=== PATIENT | female | born 1965 | race Caucasian/White ===

== ENCOUNTER 2020-11-16 21:21 | Inpatient (IN) | payer SELFPAY ==
[2020-11-17] MEDS ORDERED: Morphine 4 MG/ML VIAL ONE (00:05)
[2020-11-17] MEDS ORDERED: Ondansetron PF 4 MG/2 ML Vial IVP PRN (00:11)
[2020-11-17] MEDS ORDERED: Acetaminophen 325 MG TAB PO PRN (00:11)
[2020-11-17] MEDS ORDERED: Ketorolac Tromethamine 30 MG/ML VIAL ONE ×2 (00:12→08:14)
[2020-11-17 01:13] LABS: SARS-CoV-2 NAA Rapid Test Not Detected (NotDetected)
[2020-11-17] MEDS ORDERED: Acetaminophen 325 MG TAB ONE (06:10)
[2020-11-17 06:18] LABS: #Lymphocytes 1.4 thou/uL (1.20-3.40); #Monocytes 0.3 thou/uL (0.11-0.59); #Neutrophils 13.8 thou/uL (1.40-6.50); %Basophils 0.1 % (0.0-1.0); %Eosinophils 0.2 % (0.0-10.0); %Lymphocytes 8.9 % (21.0-51.0); %Monocytes 1.9 % (0.0-10.0); %Neutrophils 88.9 % (42.0-75.0); Hemoglobin 10.8 g/dL (12.0-16.0); Mean Corpuscular HGB CONC 32.9 g/dL (32.0-36.0); Mean Corpuscular Hemoglobin 33.9 pg (27.0-31.0); Mean Platelet Volume 7.7 fL (7.4-10.4); Platelet Count 231 thou/uL (130-400); RBC Distribution Width 11.9 % (11.5-14.5); Red Blood Cell (RBC) Count 3.18 mill/uL (4.20-5.40); White Blood Cell (WBC) Count 15.5 thou/uL (4.8-10.8)
[2020-11-17 06:35] LABS: ALT (SGPT) 9 U/L (8-55); AST (SGOT) 15 U/L (5-34); Albumin 3.7 g/dL (3.5-5.0); Alkaline Phosphatase 113 U/L (40-110); Anion Gap 12 mmol/L (10-20); BUN (Urea Nitrogen) 12 mg/dL (9.8-20.1); Bilirubin, Total 0.8 mg/dL (0.2-1.2); Calc. Creatinine Clearance 0 mL/min (70-130); Calcium 8.4 mg/dL (7.8-10.44); Carbon Dioxide 20 mmol/L (22-29); Chloride 108 mmol/L (98-107); Globulin 2.5 g/dL (2.4-3.5); Glucose 111 mg/dL (70-105); Potassium 3.3 mmol/L (3.5-5.1); Protein, Total 6.2 g/dL (6.0-8.3); Sodium 137 mmol/L (136-145)
[2020-11-17] MEDS ORDERED: Potassium Chloride 20 MEQ TAB PO SCH (07:00)
[2020-11-17] MEDS ORDERED: Sodium Chloride 0.9% 1,000 ML IV SCH (07:00)
[2020-11-17] MEDS ORDERED: Famotidine 20 MG TAB ONE (08:14)
[2020-11-17] MEDS ORDERED: Potassium Chloride 20 MEQ TAB ONE (08:14)
[2020-11-17] MEDS ORDERED: Piperacillin/Tazobactam 3.375 GM VIAL ONE ×2 (08:14→15:05)
[2020-11-17] MEDS: Piperacillin/Tazobactam 3.375 GM in Sodium Chloride 0.9% 100 ML IVPB SCH ×3 (08:35→23:08)
[2020-11-17] MEDS: Famotidine 20 MG TAB PO SCH ×2 (08:35→20:55)
[2020-11-17] MEDS: Ketorolac Tromethamine 30 MG/ML VIAL IVP PRN ×2 (08:37→20:54)
[2020-11-17] MEDS: Sodium Chloride 0.9% 1,000 ML IV SCH ×2 (08:38→20:55)
[2020-11-17 16:59] VITALS: BMI 21.1
[2020-11-17] MEDS: Melatonin 3 MG TAB PO PRN (20:55)
[2020-11-18 05:42] LABS: #Eosinphils 0.1 thou/uL (0.0-0.7); #Lymphocytes 1.2 thou/uL (1.20-3.40); #Monocytes 0.4 thou/uL (0.11-0.59); #Neutrophils 11.7 thou/uL (1.40-6.50); %Basophils 0.2 % (0.0-1.0); %Eosinophils 0.4 % (0.0-10.0); %Lymphocytes 8.7 % (21.0-51.0); %Monocytes 2.8 % (0.0-10.0); %Neutrophils 87.9 % (42.0-75.0); Hemoglobin 9.5 g/dL (12.0-16.0); Mean Corpuscular HGB CONC 32.5 g/dL (32.0-36.0); Mean Platelet Volume 8.2 fL (7.4-10.4); Platelet Count 195 thou/uL (130-400); RBC Distribution Width 11.9 % (11.5-14.5); White Blood Cell (WBC) Count 13.3 thou/uL (4.8-10.8)
[2020-11-18] MEDS: Ketorolac Tromethamine 30 MG/ML VIAL IVP PRN ×2 (05:45→17:22)
[2020-11-18] MEDS: Sodium Chloride 0.9% 1,000 ML IV SCH ×2 (05:48→08:35)
[2020-11-18 05:59] LABS: ALT (SGPT) 12 U/L (8-55); AST (SGOT) 14 U/L (5-34); Albumin 3.1 g/dL (3.5-5.0); Alkaline Phosphatase 101 U/L (40-110); Anion Gap 15 mmol/L (10-20); BUN (Urea Nitrogen) 11 mg/dL (9.8-20.1); Bilirubin, Total 0.6 mg/dL (0.2-1.2); Calc. Creatinine Clearance 81 mL/min (70-130); Calcium 8.7 mg/dL (7.8-10.44); Carbon Dioxide 11 mmol/L (22-29); Chloride 115 mmol/L (98-107); Globulin 2.5 g/dL (2.4-3.5); Glucose 66 mg/dL (70-105); Iron Less than 8 ug/dL (50-170); Iron Binding Capacity, Total 170 mcg/dL (265-497); Potassium 3.7 mmol/L (3.5-5.1); Protein, Total 5.6 g/dL (6.0-8.3); Sodium 137 mmol/L (136-145)
[2020-11-18 06:10] LABS: Ferritin 294.25 ng/mL (10-291)
[2020-11-18 06:17] LABS: Vitamin B12 686 pg/mL (211-911)
[2020-11-18 06:24] LABS: HBCM Index 0.09 S/CO (0-0.79); HBSAg Index 0.25 S/CO (0-0.99); Hep A IgM AB Non-Reactive (NonReactive); Hep A IgM S/CO 0.22 S/CO (0-0.79); Hep B Surf Ag Non-Reactive S/CO (NonReactive); Hep C IgG Ab Non-Reactive (NonReactive); Hepatitis B Core IgM Abs Non-Reactive (NonReactive)
[2020-11-18] MEDS: Famotidine 20 MG TAB PO SCH ×2 (08:32→20:17)
[2020-11-18] MEDS: Piperacillin/Tazobactam 3.375 GM in Sodium Chloride 0.9% 100 ML IVPB SCH ×2 (08:32→14:00)
[2020-11-18 15:23] LABS: Lactic Acid 0.6 mmol/L (0.5-2.2)
[2020-11-18 15:24] LABS: Anion Gap 17 mmol/L (10-20); BUN (Urea Nitrogen) 12 mg/dL (9.8-20.1); Calc. Creatinine Clearance 79 mL/min (70-130); Calcium 8.9 mg/dL (7.8-10.44); Carbon Dioxide 11 mmol/L (22-29); Chloride 114 mmol/L (98-107); Glucose 84 mg/dL (70-105); Potassium 3.8 mmol/L (3.5-5.1); Sodium 138 mmol/L (136-145)
[2020-11-18] MEDS ORDERED: Nicotine 14 MG PATCH TD SCH (17:00)
[2020-11-18] MEDS: Sodium Bicarbonate 150 MEQ in Dextrose 5% in Water 1,000 ML IV SCH (17:15)
[2020-11-18] MEDS: Potassium Chloride 20 MEQ TAB PO SCH (17:22)
[2020-11-18] MEDS: Melatonin 3 MG TAB PO PRN (20:17)
[2020-11-19] MEDS: Ketorolac Tromethamine 30 MG/ML VIAL IVP PRN (00:13)
[2020-11-19] MEDS: Piperacillin/Tazobactam 3.375 GM in Sodium Chloride 0.9% 100 ML IVPB SCH ×2 (00:15→09:33)
[2020-11-19 04:15] LABS: #Eosinphils 0.1 thou/uL (0.0-0.7); #Monocytes 0.3 thou/uL (0.11-0.59); #Neutrophils 5.2 thou/uL (1.40-6.50); %Basophils 0.2 % (0.0-1.0); %Eosinophils 1.1 % (0.0-10.0); %Lymphocytes 15.8 % (21.0-51.0); %Monocytes 4.6 % (0.0-10.0); %Neutrophils 78.2 % (42.0-75.0); Mean Corpuscular HGB CONC 33.7 g/dL (32.0-36.0); Mean Corpuscular Hemoglobin 34.5 pg (27.0-31.0); Mean Platelet Volume 7.6 fL (7.4-10.4); Platelet Count 197 thou/uL (130-400); RBC Distribution Width 11.9 % (11.5-14.5); Red Blood Cell (RBC) Count 2.61 mill/uL (4.20-5.40); White Blood Cell (WBC) Count 6.6 thou/uL (4.8-10.8)
[2020-11-19 04:28] LABS: ALT (SGPT) 12 U/L (8-55); AST (SGOT) 13 U/L (5-34); Albumin 2.9 g/dL (3.5-5.0); Alkaline Phosphatase 88 U/L (40-110); Anion Gap 13 mmol/L (10-20); BUN (Urea Nitrogen) 9 mg/dL (9.8-20.1); Bilirubin, Total 0.7 mg/dL (0.2-1.2); Calc. Creatinine Clearance 88 mL/min (70-130); Calcium 8.3 mg/dL (7.8-10.44); Carbon Dioxide 16 mmol/L (22-29); Chloride 111 mmol/L (98-107); Globulin 2.2 g/dL (2.4-3.5); Glucose 125 mg/dL (70-105); Magnesium 1.2 mg/dL (1.6-2.6); Potassium 3.2 mmol/L (3.5-5.1); Protein, Total 5.1 g/dL (6.0-8.3); Sodium 137 mmol/L (136-145)
[2020-11-19] MEDS: Sodium Bicarbonate 150 MEQ in Dextrose 5% in Water 1,000 ML IV SCH (05:18)
[2020-11-19] MEDS ORDERED: Saccharomyces boulardii 250 MG CAP PO SCH (09:00)
[2020-11-19] MEDS ORDERED: Lisinopril 5 MG TAB PO SCH (09:00)
[2020-11-19] MEDS ORDERED: Potassium Chloride 20 MEQ TAB PO SCH (09:00)
[2020-11-19] MEDS: Potassium Chloride 20 MEQ TAB PO SCH (09:16)
[2020-11-19] MEDS: Famotidine 20 MG TAB PO SCH (09:16)
[2020-11-19 13:08] VITALS: BP 125/70; TEMP 96.1
[2020-11-20] MEDS ORDERED: Lisinopril 2.5 MG TAB PO SCH (09:00)
[2020-11-21 19:09] LABS: EliA Celiac New Method **** NEW METHOD ****; t-Transglutaminase (tTG) IgA 0.7 EliAU/mL (<7 Negative)
== END 2020-11-19 15:35 | disposition home or self-care (01) | DRG 872 ==
LOC: ERS 21:21 → ERHOLD 23:07 → 2NO 11-17 16:05
PROVIDERS: ADMIT Internal Medicine; ATTEND Internal Medicine
DX: A41.89 Other specified sepsis (principal); E87.2 Acidosis; A08.4 Viral intestinal infection, unspecified; Z20.822 Contact with and (suspected) exposure to COVID-19; F10.10 Alcohol abuse, uncomplicated; F17.210 Nicotine dependence, cigarettes, uncomplicated; I10 Essential (primary) hypertension; D64.9 Anemia, unspecified; Z88.5 Allergy status to narcotic agent; Z79.899 Other long term (current) drug therapy
CPT/HCPCS: 0240U; 36415; 76705; 76775; 80053; 80074; 82607; 82728; 82746; 83516; 83540; 83550; 83605; 83630; 83735; 85025; 87045; 87046; 87324; 87328; 87329; 87427; 87449; 96374; J1885; J2270; J2543; J3490; J7070

== ENCOUNTER 2022-03-27 11:33 | Inpatient (IN) | payer OTHER, SELFPAY ==
[2022-03-27 12:46] LABS: #Basophils 0.1 thou/uL (0.0-0.2); #Lymphocytes 1.7 thou/uL (1.20-3.40); #Monocytes 0.5 thou/uL (0.11-0.59); #Neutrophils 6.8 thou/uL (1.40-6.50); %Basophils 0.8 % (0.0-1.0); %Eosinophils 0.1 % (0.0-10.0); %Lymphocytes 18.6 % (21.0-51.0); %Monocytes 5.4 % (0.0-10.0); %Neutrophils 75.2 % (42.0-75.0); Mean Corpuscular HGB CONC 33.5 g/dL (32.0-36.0); Mean Corpuscular Hemoglobin 38.9 pg (27.0-31.0); Mean Platelet Volume 8.5 fL (7.4-10.4); Platelet Count 243 thou/uL (130-400); RBC Distribution Width 13.8 % (11.5-14.5); Red Blood Cell (RBC) Count 2.84 mill/uL (4.20-5.40)
[2022-03-27] MEDS ORDERED: Acetaminophen 325 MG TAB ONE (12:46)
[2022-03-27] MEDS ORDERED: Boostrix 0.5 ML (Tdap) VIAL ONE (12:46)
[2022-03-27 13:06] LABS: Acetaminophen Less than 10.0 mcg/mL (10.0-30.0); Alcohol Less than 10 mg/dL (Less than 10); CK (CPK) 1013 U/L (29-168); Salicylate Less than 8.0 mg/dL (15.0-30.0)
[2022-03-27 13:07] LABS: ALT (SGPT) 79 U/L (8-55); AST (SGOT) 168 U/L (5-34); Albumin 2.2 g/dL (3.5-5.0); Alkaline Phosphatase 211 U/L (40-110); Anion Gap 19 mmol/L (10-20); BUN (Urea Nitrogen) 31 mg/dL (9.8-20.1); Calc. Creatinine Clearance 0 mL/min (70-130); Carbon Dioxide 21 mmol/L (22-29); Chloride 99 mmol/L (98-107); Estimated GFR 19; Globulin 3.2 g/dL (2.4-3.5); Glucose 80 mg/dL (70-105); Potassium 3.1 mmol/L (3.5-5.1); Protein, Total 5.4 g/dL (6.0-8.3); Sodium 136 mmol/L (136-145)
[2022-03-27 13:10] LABS: MDiff Complete? YES; Macrocytosis MODERATE=16-30 cells (100X) (0-5/hpf); Platelet Morphology Comment Appears Adequate; Polychromasia SLIGHT = 2-3 cells (100X) (0-2/hpf); Target Cells SLIGHT = 2-5 cells (100X) (0-1/hpf)
[2022-03-27 14:22] LABS: SARS-CoV-2 NAA Rapid Test Not Detected (NotDetected)
[2022-03-27] MEDS ORDERED: Ondansetron PF 4 MG/2 ML Vial IVP PRN (14:38)
[2022-03-27] MEDS ORDERED: Potassium Chloride 20 MEQ TAB PO SCH (14:45)
[2022-03-27] MEDS: Sodium Chloride 0.9% 1,000 ML IV SCH ×2 (17:15→22:45)
[2022-03-27] MEDS ORDERED: Acetaminophen 325 MG TAB PO PRN (20:04)
[2022-03-27] MEDS: traMADol HCl 50 MG TAB PO PRN (20:46)
[2022-03-28 05:43] LABS: #Lymphocytes 1.4 thou/uL (1.20-3.40); #Monocytes 0.4 thou/uL (0.11-0.59); %Basophils 0.1 % (0.0-1.0); %Eosinophils 0.1 % (0.0-10.0); %Lymphocytes 18.1 % (21.0-51.0); %Monocytes 5.2 % (0.0-10.0); %Neutrophils 76.5 % (42.0-75.0); Mean Corpuscular HGB CONC 32.4 g/dL (32.0-36.0); Mean Corpuscular Hemoglobin 38.6 pg (27.0-31.0); Mean Platelet Volume 8.2 fL (7.4-10.4); Platelet Count 187 thou/uL (130-400); RBC Distribution Width 13.8 % (11.5-14.5); Red Blood Cell (RBC) Count 2.08 mill/uL (4.20-5.40); White Blood Cell (WBC) Count 7.9 thou/uL (4.8-10.8)
[2022-03-28] MEDS: Acetaminophen 325 MG TAB PO PRN (05:44)
[2022-03-28] MEDS: Sodium Chloride 0.9% 1,000 ML IV SCH ×4 (05:45→23:27)
[2022-03-28 06:34] LABS: Anion Gap 14 mmol/L (10-20); BUN (Urea Nitrogen) 27 mg/dL (9.8-20.1); CK (CPK) 420 U/L (29-168); Calc. Creatinine Clearance 19 mL/min (70-130); Calcium 6.5 mg/dL (7.8-10.44); Carbon Dioxide 15 mmol/L (22-29); Chloride 109 mmol/L (98-107); Estimated GFR 29; Glucose 95 mg/dL (70-105); Potassium 2.3 mmol/L (3.5-5.1); Sodium 136 mmol/L (136-145)
[2022-03-28] MEDS ORDERED: Electrolyte Replacement Protocol 1 EACH FS PRN (06:40)
[2022-03-28] MEDS: Potassium Chloride 20 MEQ in Premix Bag 1 BAG IVPB SCH ×4 (08:04→14:29)
[2022-03-28] MEDS: Aspirin 81 mg Enteric Coated Tablet PO SCH (08:04)
[2022-03-28] MEDS: Enoxaparin Sodium 40 MG/0.4 ML SYRINGE SC SCH (08:04)
[2022-03-28] MEDS ORDERED: Potassium Chloride 40 MEQ in Premix Bag 1 BAG IVPB SCH (08:30)
[2022-03-28] MEDS ORDERED: Potassium Chloride 20 MEQ in Premix Bag 1 BAG IVPB SCH (08:45)
[2022-03-28] MEDS ORDERED: Lisinopril 2.5 MG TAB PO SCH (09:00)
[2022-03-28] MEDS ORDERED: Potassium Chloride 20 MEQ TAB PO SCH (10:15)
[2022-03-28] MEDS: traMADol HCl 50 MG TAB PO PRN ×2 (10:16→22:38)
[2022-03-28 15:21] LABS: Anion Gap 16 mmol/L (10-20); BUN (Urea Nitrogen) 24 mg/dL (9.8-20.1); Calc. Creatinine Clearance 23 mL/min (70-130); Calcium 6.5 mg/dL (7.8-10.44); Carbon Dioxide 14 mmol/L (22-29); Chloride 111 mmol/L (98-107); Estimated GFR 36; Glucose 96 mg/dL (70-105); Potassium 3.8 mmol/L (3.5-5.1); Sodium 137 mmol/L (136-145)
[2022-03-28 18:12] LABS: Potassium 4.3 mmol/L (3.5-5.1)
[2022-03-29] MEDS: Acetaminophen 325 MG TAB PO PRN (02:31)
[2022-03-29 05:35] LABS: #Lymphocytes 1.7 thou/uL (1.20-3.40); #Monocytes 0.4 thou/uL (0.11-0.59); #Neutrophils 5.1 thou/uL (1.40-6.50); %Basophils 0.2 % (0.0-1.0); %Eosinophils 0.2 % (0.0-10.0); %Lymphocytes 23.8 % (21.0-51.0); %Monocytes 5.1 % (0.0-10.0); %Neutrophils 70.7 % (42.0-75.0); Hemoglobin 9.1 g/dL (12.0-16.0); Mean Corpuscular HGB CONC 31.4 g/dL (32.0-36.0); Mean Corpuscular Hemoglobin 37.8 pg (27.0-31.0); Mean Platelet Volume 8.3 fL (7.4-10.4); Platelet Count 215 thou/uL (130-400); RBC Distribution Width 13.5 % (11.5-14.5); Red Blood Cell (RBC) Count 2.39 mill/uL (4.20-5.40); White Blood Cell (WBC) Count 7.2 thou/uL (4.8-10.8)
[2022-03-29 05:45] LABS: ALT (SGPT) 57 U/L (8-55); AST (SGOT) 76 U/L (5-34); Albumin 1.9 g/dL (3.5-5.0); Alkaline Phosphatase 176 U/L (40-110); Anion Gap 9 mmol/L (10-20); BUN (Urea Nitrogen) 19 mg/dL (9.8-20.1); Bilirubin, Total 0.7 mg/dL (0.2-1.2); CK (CPK) 254 U/L (29-168); Calc. Creatinine Clearance 31 mL/min (70-130); Calcium 6.8 mg/dL (7.8-10.44); Carbon Dioxide 16 mmol/L (22-29); Chloride 119 mmol/L (98-107); Estimated GFR 52; Globulin 2.7 g/dL (2.4-3.5); Glucose 82 mg/dL (70-105); Magnesium 1.5 mg/dL (1.6-2.6); Potassium 4.3 mmol/L (3.5-5.1); Protein, Total 4.6 g/dL (6.0-8.3); Sodium 140 mmol/L (136-145)
[2022-03-29] MEDS ORDERED: Magnesium 2 GM/50 ML(in water) 2 GM in Premix Bag 1 BAG IVPB SCH (06:00)
[2022-03-29] MEDS: Sodium Chloride 0.9% 1,000 ML IV SCH ×3 (06:20→15:58)
[2022-03-29] MEDS: Enoxaparin Sodium 40 MG/0.4 ML SYRINGE SC SCH (08:09)
[2022-03-29] MEDS: Aspirin 81 mg Enteric Coated Tablet PO SCH (08:09)
[2022-03-29] MEDS: traMADol HCl 50 MG TAB PO PRN ×2 (10:44→22:43)
[2022-03-30] MEDS: Sodium Chloride 0.9% 1,000 ML IV SCH ×3 (02:12→20:12)
[2022-03-30 05:05] LABS: #Lymphocytes 1.2 thou/uL (1.20-3.40); #Monocytes 0.2 thou/uL (0.11-0.59); #Neutrophils 5.1 thou/uL (1.40-6.50); %Basophils 0.1 % (0.0-1.0); %Eosinophils 0.4 % (0.0-10.0); %Lymphocytes 18.1 % (21.0-51.0); %Monocytes 3.4 % (0.0-10.0); %Neutrophils 77.9 % (42.0-75.0); Hemoglobin 9.8 g/dL (12.0-16.0); Mean Corpuscular Hemoglobin 38.7 pg (27.0-31.0); Mean Platelet Volume 8.1 fL (7.4-10.4); Platelet Count 229 thou/uL (130-400); RBC Distribution Width 13.7 % (11.5-14.5); Red Blood Cell (RBC) Count 2.52 mill/uL (4.20-5.40); White Blood Cell (WBC) Count 6.5 thou/uL (4.8-10.8)
[2022-03-30 05:27] LABS: ALT (SGPT) 52 U/L (8-55); AST (SGOT) 68 U/L (5-34); Albumin 1.9 g/dL (3.5-5.0); Alkaline Phosphatase 184 U/L (40-110); Anion Gap 14 mmol/L (10-20); BUN (Urea Nitrogen) 15 mg/dL (9.8-20.1); Bilirubin, Total 0.5 mg/dL (0.2-1.2); CK (CPK) 143 U/L (29-168); Calc. Creatinine Clearance 46 mL/min (70-130); Calcium 7.1 mg/dL (7.8-10.44); Carbon Dioxide 10 mmol/L (22-29); Chloride 117 mmol/L (98-107); Estimated GFR 84; Globulin 2.6 g/dL (2.4-3.5); Glucose 82 mg/dL (70-105); Magnesium 1.7 mg/dL (1.6-2.6); Potassium 3.7 mmol/L (3.5-5.1); Protein, Total 4.5 g/dL (6.0-8.3); Sodium 137 mmol/L (136-145)
[2022-03-30] MEDS: Enoxaparin Sodium 30 MG/0.3 ML SYRINGE SC SCH (08:20)
[2022-03-30] MEDS: Aspirin 81 mg Enteric Coated Tablet PO SCH (08:20)
[2022-03-30] MEDS ORDERED: Magnesium 2 GM/50 ML(in water) 2 GM in Premix Bag 1 BAG IVPB SCH (09:00)
[2022-03-30] MEDS ORDERED: ALPRAZolam 0.25 MG TAB PO SCH (11:00)
[2022-03-30 12:23] LABS: Amphetamine Not Detected (NotDetected); Barbiturates Screen Not Detected (NotDetected); Benzodiazepine Screen Not Detected (NotDetected); Cocaine Metabolite Screen Not Detected (NotDetected); Methadone Not Detected (NotDetected); Methamphetamine Not Detected (NotDetected); Opiate Screen Not Detected (NotDetected); Oxycodone Screen Not Detected (NotDetected); Phencyclidine (PCP) Not Detected (NotDetected); THC/Cannabinoid Screen Not Detected (NotDetected); Tricyclic Screen Not Detected (NotDetected)
[2022-03-30] MEDS ORDERED: Ondansetron ODT 4 MG TAB PO PRN (19:41)
[2022-03-30] MEDS ORDERED: Lorazepam 2 MG/ML VIAL IM PRN (19:41)
[2022-03-30] MEDS ORDERED: Lorazepam 1 MG TAB PO PRN (19:41)
[2022-03-30] MEDS ORDERED: Electrolyte Replacement Protocol FS SCH (19:45)
[2022-03-30] MEDS: Thiamine HCl 200 MG/2 ML VIAL SLOW IVP SCH (20:13)
[2022-03-30] MEDS: Lorazepam 1 MG TAB PO SCH (20:15)
[2022-03-30 20:56] LABS: #Lymphocytes 1.5 thou/uL (1.20-3.40); #Monocytes 0.3 thou/uL (0.11-0.59); #Neutrophils 4.5 thou/uL (1.40-6.50); %Basophils 0.2 % (0.0-1.0); %Eosinophils 0.3 % (0.0-10.0); %Lymphocytes 23.3 % (21.0-51.0); %Monocytes 4.9 % (0.0-10.0); %Neutrophils 71.3 % (42.0-75.0); Hemoglobin 9.6 g/dL (12.0-16.0); Mean Corpuscular HGB CONC 31.4 g/dL (32.0-36.0); Mean Corpuscular Hemoglobin 38.5 pg (27.0-31.0); Platelet Count 220 thou/uL (130-400); RBC Distribution Width 13.7 % (11.5-14.5); Red Blood Cell (RBC) Count 2.48 mill/uL (4.20-5.40); White Blood Cell (WBC) Count 6.3 thou/uL (4.8-10.8)
[2022-03-30 21:16] LABS: ALT (SGPT) 50 U/L (8-55); AST (SGOT) 64 U/L (5-34); Albumin 1.8 g/dL (3.5-5.0); Alkaline Phosphatase 185 U/L (40-110); Anion Gap 13 mmol/L (10-20); BUN (Urea Nitrogen) 13 mg/dL (9.8-20.1); Bilirubin, Direct 0.3 mg/dL (0.1-0.3); Bilirubin, Total 0.4 mg/dL (0.2-1.2); Calc. Creatinine Clearance 53 mL/min (70-130); Calcium 7.6 mg/dL (7.8-10.44); Carbon Dioxide 11 mmol/L (22-29); Chloride 119 mmol/L (98-107); Estimated GFR 98; Globulin 2.6 g/dL (2.4-3.5); Glucose 83 mg/dL (70-105); Magnesium 2.1 mg/dL (1.6-2.6); Phosphorus 2.3 mg/dL (2.3-4.7); Potassium 3.5 mmol/L (3.5-5.1); Protein, Total 4.4 g/dL (6.0-8.3); Sodium 139 mmol/L (136-145)
[2022-03-30] MEDS ORDERED: Potassium Chloride 20 MEQ TAB PO SCH (22:00)
[2022-03-31] MEDS: Sodium Chloride 0.9% 1,000 ML IV SCH ×2 (05:20→10:23)
[2022-03-31] MEDS: Lorazepam 1 MG TAB PO SCH ×4 (05:21→20:07)
[2022-03-31] MEDS: Aspirin 81 mg Enteric Coated Tablet PO SCH (10:24)
[2022-03-31] MEDS: Multivit, Therapeutic 1 TAB PO SCH (10:25)
[2022-03-31] MEDS: Folic Acid 1 MG TAB PO SCH (10:25)
[2022-03-31] MEDS: Enoxaparin Sodium 30 MG/0.3 ML SYRINGE SC SCH (10:29)
[2022-03-31 11:24] LABS: #Lymphocytes 0.8 thou/uL (1.20-3.40); #Monocytes 0.3 thou/uL (0.11-0.59); %Basophils 0.5 % (0.0-1.0); %Lymphocytes 11.4 % (21.0-51.0); %Monocytes 4.6 % (0.0-10.0); %Neutrophils 83.6 % (42.0-75.0); Hemoglobin 9.1 g/dL (12.0-16.0); Mean Corpuscular HGB CONC 30.6 g/dL (32.0-36.0); Mean Platelet Volume 8.1 fL (7.4-10.4); Platelet Count 240 thou/uL (130-400); RBC Distribution Width 13.8 % (11.5-14.5); Red Blood Cell (RBC) Count 2.47 mill/uL (4.20-5.40); White Blood Cell (WBC) Count 7.2 thou/uL (4.8-10.8)
[2022-03-31 11:38] LABS: ALT (SGPT) 54 U/L (8-55); AST (SGOT) 63 U/L (5-34); Albumin 1.9 g/dL (3.5-5.0); Alkaline Phosphatase 192 U/L (40-110); Anion Gap 12 mmol/L (10-20); BUN (Urea Nitrogen) 15 mg/dL (9.8-20.1); Bilirubin, Total 0.4 mg/dL (0.2-1.2); Calc. Creatinine Clearance 50 mL/min (70-130); Calcium 8.1 mg/dL (7.8-10.44); Carbon Dioxide 13 mmol/L (22-29); Chloride 120 mmol/L (98-107); Estimated GFR 92; Globulin 2.8 g/dL (2.4-3.5); Glucose 121 mg/dL (70-105); Potassium 4.3 mmol/L (3.5-5.1); Protein, Total 4.7 g/dL (6.0-8.3); Sodium 141 mmol/L (136-145)
[2022-03-31 11:46] LABS: Syphilis Antibody Nonreactive (Nonreactive); Syphilis Antibody Index 0.07 S/CO (<1.00 Non-Reactive)
[2022-03-31 11:51] LABS: Lactic Acid 0.9 mmol/L (0.5-2.2)
[2022-03-31] MEDS ORDERED: Multivitamins, Adult 10 ML, Folic Acid 1 MG, Thiamine HCl 100 MG in Dextrose 5 %-0.45 %... IV SCH (14:00)
[2022-03-31] MEDS ORDERED: Lorazepam 1 MG TAB PO PRN (19:41)
[2022-03-31] MEDS: Thiamine HCl 200 MG/2 ML VIAL SLOW IVP SCH (20:06)
[2022-03-31] MEDS ORDERED: Sodium Chloride 0.9% 1,000 ML IV SCH (20:45)
[2022-04-01] MEDS: Sodium Chloride 0.9% 1,000 ML IV SCH ×3 (00:47→11:38)
[2022-04-01] MEDS: Lorazepam 1 MG TAB PO SCH ×3 (03:51→17:16)
[2022-04-01 05:52] LABS: #Lymphocytes 1.2 thou/uL (1.20-3.40); #Monocytes 0.4 thou/uL (0.11-0.59); #Neutrophils 4.8 thou/uL (1.40-6.50); %Basophils 0.1 % (0.0-1.0); %Eosinophils 0.2 % (0.0-10.0); %Lymphocytes 18.2 % (21.0-51.0); %Monocytes 5.6 % (0.0-10.0); Mean Corpuscular HGB CONC 31.1 g/dL (32.0-36.0); Mean Corpuscular Hemoglobin 38.8 pg (27.0-31.0); Mean Platelet Volume 8.2 fL (7.4-10.4); Platelet Count 216 thou/uL (130-400); RBC Distribution Width 13.9 % (11.5-14.5); Red Blood Cell (RBC) Count 2.32 mill/uL (4.20-5.40); White Blood Cell (WBC) Count 6.4 thou/uL (4.8-10.8)
[2022-04-01 06:14] LABS: ALT (SGPT) 48 U/L (8-55); AST (SGOT) 50 U/L (5-34); Albumin 1.8 g/dL (3.5-5.0); Alkaline Phosphatase 175 U/L (40-110); Anion Gap 12 mmol/L (10-20); BUN (Urea Nitrogen) 15 mg/dL (9.8-20.1); Bilirubin, Total 0.3 mg/dL (0.2-1.2); Calc. Creatinine Clearance 52 mL/min (70-130); Calcium 8.1 mg/dL (7.8-10.44); Carbon Dioxide 10 mmol/L (22-29); Chloride 121 mmol/L (98-107); Estimated GFR 96; Globulin 2.6 g/dL (2.4-3.5); Glucose 112 mg/dL (70-105); Potassium 4.2 mmol/L (3.5-5.1); Protein, Total 4.4 g/dL (6.0-8.3); Sodium 139 mmol/L (136-145)
[2022-04-01] MEDS: Enoxaparin Sodium 30 MG/0.3 ML SYRINGE SC SCH (09:15)
[2022-04-01] MEDS ORDERED: Phenylephrine 0.25% Nasal Spray 15 ML BOT ONE (09:53)
[2022-04-01] MEDS ORDERED: Lorazepam (BATCHED) 2 MG/ML SYR SLOW IVP PRN (10:36)
[2022-04-01] MEDS ORDERED: Vancomycin HCl 1 GM in Sodium Chloride 0.9% 250 ML 250 ML IVPB SCH (11:00)
[2022-04-01] MEDS: Aspirin 81 mg Enteric Coated Tablet PO SCH (11:13)
[2022-04-01] MEDS: Folic Acid 1 MG TAB PO SCH (11:14)
[2022-04-01] MEDS: Multivit, Therapeutic 1 TAB PO SCH (11:14)
[2022-04-01] MEDS ORDERED: Vancomycin HCl 750 MG in Sodium Chloride 0.9% 250 ML 250 ML IVPB SCH (12:30)
[2022-04-01] MEDS ORDERED: Sodium Bicarbonate 150 MEQ in Dextrose 5% in Water 1,000 ML IV SCH ×2 (12:30→16:10)
[2022-04-01 13:04] LABS: Bacteria/HPF 2+ HPF (None Seen); Bilirubin Negative (Negative); Blood, Urine 3+ (Negative); Clarity Turbid (Clear); Glucose, Urine (Dipstick) 300 mg/dL (Negative); Ketone, Urine 10 mg/dL (Negative); Leukocyte 75 Leu/uL (Negative); Nitrite Negative (Negative); Protein, Urine (Dipstick) 50 mg/dL (Neg-Trace); RBC/HPF Greater than 50 HPF (0-3); Specific Gravity, Urine 1.018 (1.002-1.036); Squamous Epithelial None Seen HPF (0-3); Urobilinogen Normal mg/dL (Less than 2)
[2022-04-01 13:25] LABS: Hemoglobin 8.8 g/dL (12.0-16.0); Mean Corpuscular HGB CONC 30.6 g/dL (32.0-36.0); Mean Corpuscular Hemoglobin 38.3 pg (27.0-31.0); Mean Platelet Volume 8.4 fL (7.4-10.4); Platelet Count 204 thou/uL (130-400); RBC Distribution Width 14.2 % (11.5-14.5); Red Blood Cell (RBC) Count 2.29 mill/uL (4.20-5.40)
[2022-04-01 13:33] LABS: ALT (SGPT) 47 U/L (8-55); AST (SGOT) 49 U/L (5-34); Albumin 1.9 g/dL (3.5-5.0); Alkaline Phosphatase 178 U/L (40-110); Anion Gap 7 mmol/L (10-20); BUN (Urea Nitrogen) 16 mg/dL (9.8-20.1); Bilirubin, Total 0.3 mg/dL (0.2-1.2); Calc. Creatinine Clearance 47 mL/min (70-130); Calcium 8.2 mg/dL (7.8-10.44); Carbon Dioxide 19 mmol/L (22-29); Chloride 122 mmol/L (98-107); Estimated GFR 85; Globulin 2.3 g/dL (2.4-3.5); Glucose 114 mg/dL (70-105); Potassium 4.1 mmol/L (3.5-5.1); Protein, Total 4.2 g/dL (6.0-8.3); Sodium 144 mmol/L (136-145)
[2022-04-01 13:41] LABS: Troponin I 0.042 ng/mL (< 0.028)
[2022-04-01] MEDS ORDERED: Pantoprazole 40 MG VIAL IVP SCH (13:45)
[2022-04-01 13:53] LABS: Band 6 % (5-11); Lymphocytes 11 % (21-51); MDiff Complete? YES; Macrocytosis MODERATE=16-30 cells (100X) (0-5/hpf); Monocytes 7 % (0-10); Neutrophil 76 % (42-75); Platelet Morphology Comment Appears Adequate; Polychromasia SLIGHT = 2-3 cells (100X) (0-2/hpf); White Blood Cell (WBC) Count 5.8 thou/uL (4.8-10.8)
[2022-04-01] MEDS ORDERED: Fentanyl 100 MCG/2 ML VIAL ONE (14:44)
[2022-04-01] MEDS ORDERED: Midazolam HCl 2 mg/2 ml Vial SLOW IVP PRN (14:59)
[2022-04-01] MEDS ORDERED: Propofol 1,000 MG/100 ML VIAL IV PRN (15:00)
[2022-04-01] MEDS ORDERED: Dexmedetomidine In 0.9 % NaCl 100 ML IVPB SCH (15:00)
[2022-04-01] MEDS ORDERED: DISCONTINUE PREVIOUS NARCOTIC PAIN MEDICATIONS AND BENZODIAZEPINES FS SCH (15:00)
[2022-04-01] MEDS ORDERED: Ventilator Sedation Protocol 1 EACH FS SCH (15:00)
[2022-04-01] MEDS ORDERED: Morphine 4 MG/ML VIAL SLOW IVP PRN (15:00)
[2022-04-01] MEDS ORDERED: Fentanyl BOLUS 250 ML IVPB PRN (15:00)
[2022-04-01] MEDS ORDERED: Propofol BOLUS 1,000 MG/100 ML VIAL IV PRN (15:00)
[2022-04-01 15:10] LABS: Actual Bicarbonate (HCO3a) 15.7 mEq/L (22-28); Base Excess (BEa) -9.9 mEq/L (-2.0 to +3.0); CO2 Tension 33.4 mmHg (35.0-45.0); Calcium, Ionized (arterial) 1.19 mmol/L (1.12-1.30); Carboxyhemoglobin (COHb) 0.3 gm% (0.0-3.0); Hemoglobin (Hb) 8.6 g/dL (12.0-16.0); Potassium - ABG Lab 3.12 mmol/L (3.70-5.30); Puncture Site RBA; pH, Arterial 7.29 (7.35-7.45)
[2022-04-01] MEDS ORDERED: Phenylephrine 1% Nasal Spray 15 ML BOT EA NARE PRN (15:14)
[2022-04-01] MEDS ORDERED: Fentanyl 100 MCG/2 ML VIAL SLOW IVP SCH (15:15)
[2022-04-01] MEDS ORDERED: Rocuronium Bromide 10 MG/ML (10ML VIAL) IVPB SCH (15:30)
[2022-04-01] MEDS: NOREPINEPHRINE 8 MG/250 ML-D5W 250 ML IVPB SCH (15:55)
[2022-04-01] MEDS: Hydrocortisone Sod Succ/PF 100 mg/2 ml Vial IVP SCH ×2 (15:57→21:28)
[2022-04-01] MEDS: Albumin 25% 25 GM/100 ML BOT IVPB SCH (16:30)
[2022-04-01] MEDS ORDERED: Sodium Chloride 0.9% 1,000 ML IV SCH (17:00)
[2022-04-01] MEDS ORDERED: Lorazepam 1 MG TAB PO PRN (19:41)
[2022-04-01] MEDS ORDERED: Lorazepam 0.5 MG TAB PO SCH (19:45)
[2022-04-01 20:36] LABS: Troponin I 0.057 ng/mL (< 0.028)
[2022-04-01] MEDS: Thiamine HCl 200 MG/2 ML VIAL SLOW IVP SCH (21:28)
[2022-04-02] MEDS: Albumin 25% 25 GM/100 ML BOT IVPB SCH ×4 (00:29→17:40)
[2022-04-02] MEDS: Fentanyl CADD 100 ML IV SCH ×2 (03:08→22:33)
[2022-04-02] MEDS: Hydrocortisone Sod Succ/PF 100 mg/2 ml Vial IVP SCH ×4 (03:11→21:00)
[2022-04-02 05:22] LABS: ALT (SGPT) 28 U/L (8-55); AST (SGOT) 38 U/L (5-34); Albumin 2.7 g/dL (3.5-5.0); Alkaline Phosphatase 111 U/L (40-110); Anion Gap 16 mmol/L (10-20); BUN (Urea Nitrogen) 14 mg/dL (9.8-20.1); Bilirubin, Total 0.8 mg/dL (0.2-1.2); Calc. Creatinine Clearance 50 mL/min (70-130); Calcium 8.2 mg/dL (7.8-10.44); Carbon Dioxide 11 mmol/L (22-29); Chloride 118 mmol/L (98-107); Estimated GFR 81; Globulin 1.7 g/dL (2.4-3.5); Glucose 99 mg/dL (70-105); Magnesium 1.3 mg/dL (1.6-2.6); Potassium 3.1 mmol/L (3.5-5.1); Protein, Total 4.4 g/dL (6.0-8.3); Sodium 142 mmol/L (136-145)
[2022-04-02 05:43] LABS: Band 4 % (5-11); Hemoglobin 6.1 g/dL (12.0-16.0); Hypochromia SLIGHT = 6-15 cells (100X) (0-5/hpf); Lymphocytes 17 % (21-51); MDiff Complete? YES; Mean Corpuscular HGB CONC 32.1 g/dL (32.0-36.0); Mean Corpuscular Hemoglobin 38.7 pg (27.0-31.0); Mean Platelet Volume 8.2 fL (7.4-10.4); Monocytes 5 % (0-10); Neutrophil 74 % (42-75); Nucleated RBC 7 % (0); Platelet Count 167 thou/uL (130-400); Platelet Morphology Comment Appears Adequate; Red Blood Cell (RBC) Count 1.58 mill/uL (4.20-5.40); White Blood Cell (WBC) Count 6.3 thou/uL (4.8-10.8)
[2022-04-02 07:23] LABS: Actual Bicarbonate (HCO3a) 14.3 mEq/L (22-28); Base Excess (BEa) -8.2 mEq/L (-2.0 to +3.0); Calcium, Ionized (arterial) 1.17 mmol/L (1.12-1.30); Carboxyhemoglobin (COHb) 0.4 gm% (0.0-3.0); Potassium - ABG Lab 3.19 mmol/L (3.70-5.30); pH, Arterial 7.49 (7.35-7.45)
[2022-04-02 07:29] LABS: CO2 Tension 19.1 mmHg (35.0-45.0); Puncture Site LRA
[2022-04-02 07:30] LABS: ALV-art Gradient 180.575 mmHg (0-20)
[2022-04-02] MEDS ORDERED: Potassium Phosphate 22 MMOL in Sodium Chloride 0.9% 250 ML 250 ML IVPB SCH (08:00)
[2022-04-02] MEDS ORDERED: Magnesium Sulfate In Water 4 GM in Premix Bag 1 BAG IVPB SCH (08:00)
[2022-04-02] MEDS ORDERED: Potassium Chloride 20 MEQ TAB PO SCH ×2 (08:00)
[2022-04-02] MEDS ORDERED: PHOS-NAK 1 PKT PACK PO SCH (08:00)
[2022-04-02] MEDS ORDERED: Magnesium 5 GM/10 ML Abboject SYRINGE ONE (08:49)
[2022-04-02] MEDS ORDERED: Aspirin Chewable 81 MG TAB PO SCH (09:00)
[2022-04-02] MEDS ORDERED: Multivits W-Minerals Liquid 15 ML LIQ PER TUBE SCH ×2 (09:00→10:45)
[2022-04-02] MEDS ORDERED: Pantoprazole 40 MG VIAL IVP SCH (09:00)
[2022-04-02] MEDS: Folic Acid 1 MG TAB PO SCH (09:16)
[2022-04-02] MEDS: Enoxaparin Sodium 30 MG/0.3 ML SYRINGE SC SCH (09:16)
[2022-04-02] MEDS ORDERED: Electrolyte Replacement Protocol 1 EACH FS ONE (12:56)
[2022-04-02] MEDS: Vancomycin HCl 500 MG in Sodium Chloride 0.9% 100 ML IVPB SCH (13:04)
[2022-04-02] MEDS ORDERED: Electrolyte Replacement Protocol FS PRN (13:15)
[2022-04-02] MEDS ORDERED: Sodium Bicarbonate Tab 325 MG TAB PER TUBE PRN (14:00)
[2022-04-02] MEDS ORDERED: Pancrelipase DR 12,000 1 CAP FS PRN (14:00)
[2022-04-02 16:22] LABS: Hemoglobin 7.9 g/dL (12.0-16.0)
[2022-04-02 16:41] LABS: Potassium 3.4 mmol/L (3.5-5.1)
[2022-04-02] MEDS: D5 1/2 NS w/10 mEq KCl 1,000 ML/1,000 ML BAG IV SCH (17:37)
[2022-04-02] MEDS ORDERED: Potassium Chloride 40 MEQ in Sodium Chloride 0.9% 250 ML 250 ML IVPB SCH (17:45)
[2022-04-02] MEDS: Multivit, Therapeutic 1 TAB PO SCH (18:27)
[2022-04-02] MEDS ORDERED: Lorazepam 0.5 MG TAB PO PRN (19:41)
[2022-04-02] MEDS: Thiamine 100 MG TAB PO SCH (21:00)
[2022-04-02] MEDS: Pantoprazole 40 MG VIAL IVP SCH (21:15)
[2022-04-03 00:15] LABS: Potassium 4.3 mmol/L (3.5-5.1)
[2022-04-03] MEDS: Hydrocortisone Sod Succ/PF 100 mg/2 ml Vial IVP SCH ×4 (03:22→21:06)
[2022-04-03 05:07] LABS: Iron 52 ug/dL (50-170)
[2022-04-03 05:08] LABS: ALT (SGPT) 17 U/L (8-55); AST (SGOT) 31 U/L (5-34); Alkaline Phosphatase 78 U/L (40-110); Anion Gap 14 mmol/L (10-20); BUN (Urea Nitrogen) 15 mg/dL (9.8-20.1); Bilirubin, Total 1.1 mg/dL (0.2-1.2); Calc. Creatinine Clearance 44 mL/min (70-130); Calcium 8.4 mg/dL (7.8-10.44); Carbon Dioxide 12 mmol/L (22-29); Chloride 117 mmol/L (98-107); Estimated GFR 69; Globulin 1.3 g/dL (2.4-3.5); Glucose 154 mg/dL (70-105); Potassium 4.2 mmol/L (3.5-5.1); Protein, Total 4.3 g/dL (6.0-8.3); Sodium 139 mmol/L (136-145)
[2022-04-03 05:12] LABS: Reticulocyte Count 2.6 % (0.5-1.5)
[2022-04-03 05:19] LABS: Iron 56 ug/dL (50-170); Phosphorus 2.6 mg/dL (2.3-4.7)
[2022-04-03 05:26] LABS: SARS-CoV-2 NAA Rapid Test Not Detected (NotDetected)
[2022-04-03 05:43] LABS: Iron Binding Capacity, Total 49 mcg/dL (265-497)
[2022-04-03 05:46] LABS: Iron Binding Capacity, Total 49 mcg/dL (265-497)
[2022-04-03 06:05] LABS: Anisocytosis SLIGHT = 6-15 cells (100X) (0-5/hpf); Band 4 % (5-11); Hemoglobin 8.1 g/dL (12.0-16.0); Lymphocytes 12 % (21-51); MDiff Complete? YES; Macrocytosis MODERATE=16-30 cells (100X) (0-5/hpf); Mean Corpuscular HGB CONC 33.1 g/dL (32.0-36.0); Mean Corpuscular Hemoglobin 36.3 pg (27.0-31.0); Monocytes 9 % (0-10); Neutrophil 75 % (42-75); Nucleated RBC 11 % (0); Ovalocytes SLIGHT = 2-5 cells (100X) (0-1/hpf); Platelet Count 149 thou/uL (130-400); Platelet Morphology Comment Appears Adequate; RBC Distribution Width 20.4 % (11.5-14.5); Red Blood Cell (RBC) Count 2.22 mill/uL (4.20-5.40); White Blood Cell (WBC) Count 6.5 thou/uL (4.8-10.8)
[2022-04-03] MEDS: D5 1/2 NS w/10 mEq KCl 1,000 ML/1,000 ML BAG IV SCH (06:15)
[2022-04-03 07:04] LABS: Actual Bicarbonate (HCO3v) 17 mEq/L (22-28); Base Excess -8.7 mEq/L (-2.0 to +3.0); Calcium, Ionized (venous) 1.28 mmol/L (1.16-1.32); Chloride (VBG) 117 mmol/L (98-106); Hemoglobin (Hb) 8.8 g/dL (11.7-16.0); Sodium 136.8 mmol/L (133-146); pH (venous) 7.32 (7.32-7.43)
[2022-04-03] MEDS ORDERED: Albumin 25% 25 GM/100 ML BOT IVPB SCH ×2 (07:15→10:45)
[2022-04-03] MEDS ORDERED: Magnesium 2 GM/50 ML(in water) 2 GM in Premix Bag 1 BAG IVPB SCH (08:00)
[2022-04-03] MEDS: Pantoprazole 40 MG VIAL IVP SCH ×2 (08:12→20:04)
[2022-04-03] MEDS: Folic Acid 1 MG TAB PO SCH (08:12)
[2022-04-03] MEDS ORDERED: Lorazepam 2 MG/ML VIAL SLOW IVP PRN (10:09)
[2022-04-03] MEDS ORDERED: Furosemide 40 MG/4 ML VIAL SLOW IVP SCH (10:45)
[2022-04-03] MEDS ORDERED: Furosemide 20 MG/2 ML VIAL SLOW IVP SCH (11:00)
[2022-04-03] MEDS ORDERED: Lorazepam 2 MG/ML VIAL SLOW IVP SCH ×2 (11:00→12:00)
[2022-04-03] MEDS: NOREPINEPHRINE 8 MG/250 ML-D5W 250 ML IVPB SCH (11:29)
[2022-04-03] MEDS: Lactated Ringer's 1,000 ML IV SCH (11:29)
[2022-04-03] MEDS: Vancomycin HCl 500 MG in Sodium Chloride 0.9% 100 ML IVPB SCH (11:40)
[2022-04-03] MEDS: Midazolam HCl 2 mg/2 ml Vial SLOW IVP PRN ×5 (11:49→22:56)
[2022-04-03] MEDS ORDERED: Midazolam HCl 2 mg/2 ml Vial SLOW IVP SCH (12:00)
[2022-04-03 12:23] LABS: Vancomycin, Trough 4.8 ug/mL
[2022-04-03] MEDS: Multivits W-Minerals Liquid 15 ML LIQ PO SCH (15:49)
[2022-04-03] MEDS: Fentanyl CADD 100 ML IV SCH (18:54)
[2022-04-03] MEDS: Thiamine 100 MG TAB PO SCH (20:04)
[2022-04-03] MEDS ORDERED: Vancomycin HCl 500 MG in Sodium Chloride 0.9% 100 ML IVPB SCH (23:59)
[2022-04-04] MEDS: Lactated Ringer's 1,000 ML IV SCH ×3 (04:02→10:07)
[2022-04-04] MEDS: Hydrocortisone Sod Succ/PF 100 mg/2 ml Vial IVP SCH ×4 (04:02→20:51)
[2022-04-04 05:00] LABS: ALT (SGPT) 17 U/L (8-55); AST (SGOT) 32 U/L (5-34); Albumin 3.4 g/dL (3.5-5.0); Alkaline Phosphatase 77 U/L (40-110); Anion Gap 13 mmol/L (10-20); BUN (Urea Nitrogen) 17 mg/dL (9.8-20.1); Bilirubin, Total 0.6 mg/dL (0.2-1.2); Calc. Creatinine Clearance 51 mL/min (70-130); Calcium 8.9 mg/dL (7.8-10.44); Carbon Dioxide 16 mmol/L (22-29); Chloride 115 mmol/L (98-107); Estimated GFR 80; Globulin 1.2 g/dL (2.4-3.5); Glucose 141 mg/dL (70-105); Potassium 3.6 mmol/L (3.5-5.1); Protein, Total 4.6 g/dL (6.0-8.3); Sodium 140 mmol/L (136-145)
[2022-04-04 05:12] LABS: Band 34 % (5-11); Hemoglobin 8.1 g/dL (12.0-16.0); Lymphocytes 7 % (21-51); MDiff Complete? YES; Macrocytosis SLIGHT = 6-15 cells (100X) (0-5/hpf); Mean Corpuscular HGB CONC 32.7 g/dL (32.0-36.0); Mean Corpuscular Hemoglobin 36.7 pg (27.0-31.0); Mean Platelet Volume 9.1 fL (7.4-10.4); Monocytes 6 % (0-10); Neutrophil 53 % (42-75); Platelet Count 126 thou/uL (130-400); Platelet Morphology Comment Appears Adequate; Red Blood Cell (RBC) Count 2.21 mill/uL (4.20-5.40); White Blood Cell (WBC) Count 8.5 thou/uL (4.8-10.8)
[2022-04-04 07:37] LABS: Base Excess (BEa) -10.7 mEq/L (-2.0 to +3.0); CO2 Tension 32.5 mmHg (35.0-45.0); Calcium, Ionized (arterial) 1.34 mmol/L (1.12-1.30); Carboxyhemoglobin (COHb) 0.3 gm% (0.0-3.0); Hemoglobin (Hb) 10.3 g/dL (12.0-16.0); O2 Tension (PaO2), arterial 72.4 mmHg (80.0-100.0); Potassium - ABG Lab 3.39 mmol/L (3.70-5.30); pH, Arterial 7.28 (7.35-7.45)
[2022-04-04 07:42] LABS: ALV-art Gradient 207.825 mmHg (0-20); Puncture Site RRA
[2022-04-04] MEDS: Furosemide 20 MG/2 ML VIAL SLOW IVP SCH (07:48)
[2022-04-04] MEDS ORDERED: Albumin 25% 25 GM/100 ML BOT IVPB SCH (09:00)
[2022-04-04] MEDS: Pantoprazole 40 MG VIAL IVP SCH ×2 (09:19→20:51)
[2022-04-04] MEDS: Folic Acid 1 MG TAB PO SCH (09:22)
[2022-04-04] MEDS: Multivits W-Minerals Liquid 15 ML LIQ PO SCH (09:24)
[2022-04-04] MEDS ORDERED: Lactated Ringer's 1,000 ML IV SCH (09:45)
[2022-04-04] MEDS: Midazolam HCl 2 mg/2 ml Vial SLOW IVP PRN ×4 (10:04→22:21)
[2022-04-04] MEDS ORDERED: Potassium Chloride 20 MEQ TAB PO SCH (10:15)
[2022-04-04] MEDS ORDERED: Fentanyl CADD 100 ML ONE (18:08)
[2022-04-04] MEDS: Fentanyl CADD 100 ML IV SCH (18:10)
[2022-04-04] MEDS ORDERED: Lactated Ringer's 500 ML IV SCH (20:15)
[2022-04-04] MEDS: Thiamine 100 MG TAB PO SCH (20:51)
[2022-04-05] MEDS: Midazolam HCl 2 mg/2 ml Vial SLOW IVP PRN ×3 (02:14→07:10)
[2022-04-05] MEDS: Hydrocortisone Sod Succ/PF 100 mg/2 ml Vial IVP SCH ×4 (04:08→20:47)
[2022-04-05 05:12] LABS: ALT (SGPT) 17 U/L (8-55); AST (SGOT) 40 U/L (5-34); Albumin 3.2 g/dL (3.5-5.0); Alkaline Phosphatase 85 U/L (40-110); Anion Gap 13 mmol/L (10-20); BUN (Urea Nitrogen) 20 mg/dL (9.8-20.1); Bilirubin, Total 0.7 mg/dL (0.2-1.2); Calc. Creatinine Clearance 66 mL/min (70-130); Calcium 9.3 mg/dL (7.8-10.44); Carbon Dioxide 18 mmol/L (22-29); Chloride 113 mmol/L (98-107); Estimated GFR 86; Globulin 1.6 g/dL (2.4-3.5); Glucose 102 mg/dL (70-105); Protein, Total 4.8 g/dL (6.0-8.3); Sodium 141 mmol/L (136-145)
[2022-04-05 05:15] LABS: Potassium 2.7 mmol/L (3.5-5.1)
[2022-04-05 05:43] LABS: Anisocytosis SLIGHT = 6-15 cells (100X) (0-5/hpf); Band 23 % (5-11); Hemoglobin 9.2 g/dL (12.0-16.0); Lymphocytes 5 % (21-51); MDiff Complete? YES; Macrocytosis MODERATE=16-30 cells (100X) (0-5/hpf); Mean Corpuscular HGB CONC 32.4 g/dL (32.0-36.0); Mean Corpuscular Hemoglobin 36.2 pg (27.0-31.0); Metamyelocyte 1 % (0-0); Monocytes 1 % (0-10); Neutrophil 70 % (42-75); Nucleated RBC 2 % (0); Ovalocytes SLIGHT = 2-5 cells (100X) (0-1/hpf); Platelet Count 139 thou/uL (130-400); Platelet Morphology Comment Appears Adequate; RBC Distribution Width 20.1 % (11.5-14.5); Red Blood Cell (RBC) Count 2.55 mill/uL (4.20-5.40); White Blood Cell (WBC) Count 16.6 thou/uL (4.8-10.8)
[2022-04-05] MEDS: Potassium Chloride 40 MEQ in Sodium Chloride 0.9% 250 ML 250 ML IVPB SCH ×2 (06:08→10:54)
[2022-04-05 07:25] LABS: Actual Bicarbonate (HCO3a) 15.6 mEq/L (22-28); Base Excess (BEa) -9.2 mEq/L (-2.0 to +3.0); CO2 Tension 30.1 mmHg (35.0-45.0); Calcium, Ionized (arterial) 1.34 mmol/L (1.12-1.30); Carboxyhemoglobin (COHb) 0.2 gm% (0.0-3.0); Potassium - ABG Lab 3.43 mmol/L (3.70-5.30); pH, Arterial 7.33 (7.35-7.45)
[2022-04-05 07:31] LABS: ALV-art Gradient 370.825 mmHg (0-20); Puncture Site RRA
[2022-04-05] MEDS: Albumin 25% 25 GM/100 ML BOT IVPB SCH (07:47)
[2022-04-05] MEDS ORDERED: Furosemide 20 MG/2 ML VIAL SLOW IVP SCH (08:00)
[2022-04-05 08:10] LABS: Magnesium 1.6 mg/dL (1.6-2.6)
[2022-04-05] MEDS ORDERED: Fentanyl CADD 100 ML ONE (08:13)
[2022-04-05] MEDS: Fentanyl CADD 100 ML IV SCH (08:24)
[2022-04-05] MEDS ORDERED: Magnesium 2 GM/50 ML(in water) 2 GM in Premix Bag 1 BAG IVPB SCH (09:00)
[2022-04-05] MEDS: Folic Acid 1 MG TAB PO SCH (10:01)
[2022-04-05] MEDS: Enoxaparin Sodium 40 MG/0.4 ML SYRINGE SC SCH (10:01)
[2022-04-05] MEDS: Pantoprazole 40 MG VIAL IVP SCH ×2 (10:02→20:48)
[2022-04-05 10:32] VITALS: BMI 18.3
[2022-04-05] MEDS: Lactated Ringer's 1,000 ML IV SCH (10:52)
[2022-04-05] MEDS: Furosemide 20 MG/2 ML VIAL SLOW IVP SCH (10:52)
[2022-04-05] MEDS: Multivits W-Minerals Liquid 15 ML LIQ PO SCH (12:36)
[2022-04-05 19:39] LABS: Potassium 3.5 mmol/L (3.5-5.1)
[2022-04-05] MEDS ORDERED: Potassium Bicarbonate/Cit Ac 20 MEQ TAB PER TUBE SCH (20:00)
[2022-04-05] MEDS: Thiamine 100 MG TAB PO SCH (20:48)
[2022-04-06] MEDS: NOREPINEPHRINE 8 MG/250 ML-D5W 250 ML IVPB SCH (00:41)
[2022-04-06] MEDS: Midazolam HCl 2 mg/2 ml Vial SLOW IVP PRN ×4 (00:47→14:51)
[2022-04-06] MEDS: Fentanyl CADD 100 ML IV SCH (02:52)
[2022-04-06] MEDS: Hydrocortisone Sod Succ/PF 100 mg/2 ml Vial IVP SCH ×2 (04:13→08:47)
[2022-04-06 05:04] LABS: ALT (SGPT) 18 U/L (8-55); AST (SGOT) 41 U/L (5-34); Albumin 3.1 g/dL (3.5-5.0); Alkaline Phosphatase 90 U/L (40-110); Anion Gap 11 mmol/L (10-20); BUN (Urea Nitrogen) 22 mg/dL (9.8-20.1); Bilirubin, Total 0.6 mg/dL (0.2-1.2); Calc. Creatinine Clearance 60 mL/min (70-130); Calcium 9.4 mg/dL (7.8-10.44); Carbon Dioxide 20 mmol/L (22-29); Chloride 113 mmol/L (98-107); Estimated GFR 83; Globulin 1.7 g/dL (2.4-3.5); Glucose 154 mg/dL (70-105); Potassium 4.3 mmol/L (3.5-5.1); Protein, Total 4.8 g/dL (6.0-8.3); Sodium 140 mmol/L (136-145)
[2022-04-06 05:31] LABS: Band 48 % (5-11); Hemoglobin 8.2 g/dL (12.0-16.0); Hypochromia SLIGHT = 6-15 cells (100X) (0-5/hpf); Lymphocytes 2 % (21-51); MDiff Complete? YES; Macrocytosis SLIGHT = 6-15 cells (100X) (0-5/hpf); Mean Corpuscular HGB CONC 32.3 g/dL (32.0-36.0); Mean Corpuscular Hemoglobin 36.3 pg (27.0-31.0); Mean Platelet Volume 9.8 fL (7.4-10.4); Monocytes 4 % (0-10); Neutrophil 46 % (42-75); Platelet Count 119 thou/uL (130-400); Platelet Morphology Comment Appears Adequate; RBC Distribution Width 19.8 % (11.5-14.5); Red Blood Cell (RBC) Count 2.26 mill/uL (4.20-5.40); White Blood Cell (WBC) Count 17.4 thou/uL (4.8-10.8)
[2022-04-06 07:35] LABS: Base Excess (BEa) -4.3 mEq/L (-2.0 to +3.0); CO2 Tension 39.6 mmHg (35.0-45.0); Calcium, Ionized (arterial) 1.34 mmol/L (1.12-1.30); Carboxyhemoglobin (COHb) 0.3 gm% (0.0-3.0); Potassium - ABG Lab 4.27 mmol/L (3.70-5.30); pH, Arterial 7.34 (7.35-7.45)
[2022-04-06 07:38] LABS: O2 Tension (PaO2), arterial 46.9 mmHg (80.0-100.0)
[2022-04-06 07:39] LABS: Puncture Site RRA
[2022-04-06] MEDS: Albumin 25% 25 GM/100 ML BOT IVPB SCH (08:42)
[2022-04-06] MEDS: Folic Acid 1 MG TAB PO SCH (08:42)
[2022-04-06] MEDS: Enoxaparin Sodium 40 MG/0.4 ML SYRINGE SC SCH (08:42)
[2022-04-06] MEDS: Furosemide 20 MG/2 ML VIAL SLOW IVP SCH (08:43)
[2022-04-06] MEDS: Pantoprazole 40 MG VIAL IVP SCH (08:43)
[2022-04-06] MEDS: Multivits W-Minerals Liquid 15 ML LIQ PO SCH (09:06)
[2022-04-06] MEDS: Lactated Ringer's 1,000 ML IV SCH (11:22)
[2022-04-06 12:41] VITALS: TEMP 98
[2022-04-06 14:09] VITALS: BP 119/84
== END 2022-04-06 15:48 | disposition hospice, inpatient (51) | DRG 682 ==
LOC: ERS 11:33 → ERHOLD 14:42 → NEURO 16:26 → CCU 04-01 14:25
PROVIDERS: ADMIT Internal Medicine; ATTEND Internal Medicine
PROC: 0BH17EZ Insertion of Endotracheal Airway into Trachea, Via Natural or Artificial Opening (ICD-10-PCS; principal; 2022-04-01)
PROC: 5A1955Z Respiratory Ventilation, Greater than 96 Consecutive Hours (ICD-10-PCS; 2022-04-01)
PROC: 06HY33Z Insertion of Infusion Device into Lower Vein, Percutaneous Approach (ICD-10-PCS; 2022-04-01)
PROC: 0B9D8ZX Drainage of Right Middle Lung Lobe, Via Natural or Artificial Opening Endoscopic, Diagnostic (ICD-10-PCS; 2022-04-01)
PROC: 3E043XZ Introduction of Vasopressor into Central Vein, Percutaneous Approach (ICD-10-PCS; 2022-04-01)
PROC: 30233N1 Transfusion of Nonautologous Red Blood Cells into Peripheral Vein, Percutaneous Approach (ICD-10-PCS; 2022-04-02)
DX: N17.9 Acute kidney failure, unspecified (principal); G93.41 Metabolic encephalopathy; L89.154 Pressure ulcer of sacral region, stage 4; R65.21 Severe sepsis with septic shock; A41.81 Sepsis due to Enterococcus; A41.2 Sepsis due to unspecified staphylococcus; E43 Unspecified severe protein-calorie malnutrition; J80 Acute respiratory distress syndrome; I46.8 Cardiac arrest due to other underlying condition; M62.82 Rhabdomyolysis; R64 Cachexia; Z68.1 Body mass index [BMI] 19.9 or less, adult; I47.1 Supraventricular tachycardia; F10.131 Alcohol abuse with withdrawal delirium; J98.11 Atelectasis; N39.0 Urinary tract infection, site not specified; D62 Acute posthemorrhagic anemia; Z66 Do not resuscitate; Z20.822 Contact with and (suspected) exposure to COVID-19; I50.813 Acute on chronic right heart failure; I95.9 Hypotension, unspecified; E87.6 Hypokalemia; Z51.5 Encounter for palliative care; F17.210 Nicotine dependence, cigarettes, uncomplicated; S60.512A Abrasion of left hand, initial encounter; S60.511A Abrasion of right hand, initial encounter; E86.0 Dehydration; W01.0XXA Fall on same level from slipping, tripping and stumbling without subsequent striking against object, initial encounter; R45.1 Restlessness and agitation; E83.42 Hypomagnesemia; I11.0 Hypertensive heart disease with heart failure; J44.9 Chronic obstructive pulmonary disease, unspecified; R53.81 Other malaise; Z88.6 Allergy status to analgesic agent; Z79.82 Long term (current) use of aspirin; Z79.899 Other long term (current) drug therapy; Y92.009 Unspecified place in unspecified non-institutional (private) residence as the place of occurrence of the external cause
CPT/HCPCS: 36415; 36416; 36430; 36600; 70450; 71045; 72170; 80048; 80053; 80202; 80306; 80307; 81001; 82140; 82248; 82533; 82550; 82607; 82805; 83540; 83550; 83605; 83690; 83735; 83880; 84100; 84145; 84443; 84484; 85025; 85046; 86780; 86850; 86900; 86901; 87040; 87070; 87077; 87081; 87086; 87186; 87205; 90471; 90715; 93005; 93010; 93306; 94002; 94003; 96360; 97139; C9113; J1650; J1720; J1940; J1956; J2250; J2405; J3010; J3370; J3411; J3475; J3480; J3490; J7042; J7050; J7070; J7120; P9016; P9047; U0002

== ENCOUNTER 2022-04-06 15:53 | Inpatient (IN) | payer OTHER ==
[2022-04-06 16:11] VITALS: BMI 18.3
[2022-04-06] MEDS ORDERED: Lorazepam 2 MG/ML VIAL ONE (16:39)
[2022-04-06] MEDS ORDERED: Morphine 4 MG/ML VIAL ONE (16:39)
[2022-04-06] MEDS ORDERED: Morphine 4 MG/ML VIAL SLOW IVP PRN (16:41)
[2022-04-06] MEDS ORDERED: Lorazepam 2 MG/ML VIAL SLOW IVP PRN ×2 (16:42→16:45)
[2022-04-06] MEDS ORDERED: Atropine Sulfate 1% Ophth Soln 5 ml Bottle PO PRN (16:43)
[2022-04-06] MEDS ORDERED: Acetaminophen 650 MG Suppository PR PRN (16:45)
[2022-04-06] MEDS ORDERED: chlorproMAZINE HCl 50 MG/2 ML AMP IM PRN (16:45)
[2022-04-06] MEDS ORDERED: Ondansetron PF 4 MG/2 ML Vial IVP PRN (16:45)
== END 2022-04-06 16:57 | disposition expired | DRG 951 ==
LOC: CCU 15:53
PROVIDERS: ADMIT Family Medicine; ATTEND Family Medicine
DX: Z51.5 Encounter for palliative care (principal); A41.9 Sepsis, unspecified organism; J96.01 Acute respiratory failure with hypoxia; M62.82 Rhabdomyolysis; E46 Unspecified protein-calorie malnutrition; Z68.1 Body mass index [BMI] 19.9 or less, adult; Z66 Do not resuscitate; Z88.5 Allergy status to narcotic agent
CPT/HCPCS: J2060; J2270